=== PATIENT | male | born 1985 | race Caucasian/White ===

== ENCOUNTER 2017-11-22 23:08 | Emergency (ER) | payer SELFPAY ==
[2017-11-22 23:28] VITALS: BMI 24.8
--- NOTE | 2017-11-23 00:17 | PDOC ---
History of Present Illness <Adam Turk - Last Filed: 11/23/17 05:48> - General History Source: Patient Exam Limitations: No Limitations - History of Present Illness Initial Comments: 11/23/17 07:08 Patient is a 32 year old male with no significant past medical history who presents to the ED with complaints of epigastric abdominal pain and throat paint that began 4 days ago. Patient reports experiencing of epigastric abdominal pain and throat pain that began saturday afternoon and has been increasing in intensity over time. He reports epigastric throat pain and abdominal pain is a 5/10 in intensity at baseline but states, pain worse when he eats or drinks anything. Patient reports he hasn't eating anything more than Soup since saturday afternoon. He reports getting an endoscopy 5 months ago, with results indicating he had an ulcer. Pt notes his symptoms seem wors when he is lying down. Denies Sob. Denies nausea, vomiting. Garcia fevers, chills. Denies contact with sick individuals, out of state travelling. Denies any other symptoms. Allergies: None Social history: No smoking. No alcohol. No illicit drugs. Surgical history: Endoscopy s/p 5 months ago FamHx: Kidney complications. PMD: None <Quincy Hurst - Last Filed: 11/23/17 07:08> - General Chief Complaint: Pain, Acute Stated Complaint: FATIGUE Time Seen by Provider: 11/22/17 23:42 Past History - Suicide/Smoking/Psychosocial Hx Smoking History: Never smoked Have you smoked in the past 12 months: No Information on smoking cessation initiated: No Hx Alcohol Use: No Drug/Substance Use Hx: No <Adam Turk - Last Filed: 11/23/17 05:48> <Quincy Hurst - Last Filed: 11/23/17 07:08> - Past Medical History Allergies/Adverse Reactions: Allergies Allergy/AdvReac Type Severity Reaction Status Date / Time No Known Allergies Allergy Verified 11/22/17 23:26 Home Medications: Ambulatory Orders Ranitidine HCl [Zantac] 150 mg PO DAILY #20 tablet 11/23/17 Sucralfate [Carafate -] 1 gm PO BID #20 tablet 11/23/17 Review of Systems - Review of Systems Able to Perform ROS?: Yes Comments:: 02/10/18 07:08 CONSTITUTIONAL: No reported: Fever, Chills, Diaphoresis, Generalized Weakness, Malaise, Loss of Appetite HEENT: No reported: Rhinorrhea, Nasal Congestion, Throat Swelling, Difficulty Swallowing, Mouth Swelling, Ear Pain, Eye Pain, Visual Changes CARDIOVASCULAR: No reported: Chest Pain, Syncope, Palpitations, Irregular Heart Rate, Lightheadedness, Peripheral Edema RESPIRATORY: No reported: Cough, Shortness of Breath, SOB with Exertion, Orthopnea, Wheezing , Stridor, Hemoptysis GASTROINTESTINAL: +burning Abdominal pain that radiates up to throat No reported: Abdominal Distension, Nausea, Vomiting, Diarrhea, Constipation, Melena, Hematochezia GENITOURINARY: No reported: Dysuria, Frequency, Urgency, Hesitancy, Flank Pain, Genital Pain MUSCULOSKELETAL: No reported: Myalgia, Arthralgia, Joint Swelling, Back pain, Neck Pain SKIN: No reported: Rash, Itching, Pallor HEMATOLOGIC/IMMUNOLOGIC: No reported: Easy Bleeding, Easy Bruising, Lymphadenopathy, Frequent infections ENDOCRINE: No reported: Unexplained Weight Gain, Unexplained Weight Loss, Heat Intolerance , Cold Intolerance NEUROLOGIC: No reported: Headache, Focal Weakness, Paresthesias, Vertigo, Lightheadedness, Unsteady Gait, Seizure, Mental Status Changes, Incontinence PSYCHIATRIC: No reported: Anxiety, Depression <Quincy Hurst - Last Filed: 11/23/17 07:08> *Physical Exam - Vital Signs Last Vital Signs Temp Pulse Resp BP Pulse Ox 98.1 F 65 20 147/87 100 11/22/17 23:26 11/22/17 23:26 11/22/17 23:26 11/22/17 23:26 11/22/17 23:26 <Adam Turk - Last Filed: 11/23/17 05:48> - Vital Signs Last Vital Signs Temp Pulse Resp BP Pulse Ox 98 F 72 14 138/82 100 11/23/17 06:03 11/23/17 06:03 11/23/17 06:03 11/23/17 06:03 11/22/17 23:26 - Physical Exam Comments: 11/23/17 07:08 GENERAL: The patient is awake, alert, and fully oriented, Nontoxic - in no acute distress. HEAD: Normocephalic, atraumatic. EYES: extraocular movements intact, sclera anicteric, conjunctiva clear. ENT: Normal voice, Moist mucous membranes. NECK: Normal range of motion, No JVD LUNGS: Breath sounds equal, clear to auscultation bilaterally. No wheezes, no rhonchi, no rales. HEART: Regular rate and rhythm, normal S1 and S2 without murmur, rub or gallop. ABDOMEN: Soft, nontender, neg murphies sign, no tendernes at mcburneys, normoactive bowel sounds. No guarding, no rebound. No masses. No CVA tenderness EXTREMITIES: Normal range of motion, no edema. No clubbing or cyanosis. No cords , erythema, or tenderness. NEUROLOGICAL: No facial asymmetry, Normal speech, normal gait. PSYCH: Normal mood, normal affect. SKIN: Warm, Dry, normal turgor. <Quincy Hurst - Last Filed: 11/23/17 07:08> ED Treatment Course - LABORATORY CBC & Chemistry Diagram: 11/23/17 00:35 11/23/17 00:35 <Adam Turk - Last Filed: 11/23/17 05:48> - LABORATORY CBC & Chemistry Diagram: 11/23/17 00:35 11/23/17 00:35 - ADDITIONAL ORDERS Additional order review: Laboratory Results 11/23/17 11/23/17 00:49 00:35 Sodium 139 Potassium 4.3 Chloride 103 Carbon Dioxide 29 Anion Gap 7 L BUN 20 H Creatinine 1.1 Creat Clearance w eGFR > 60 Random Glucose 88 Calcium 9.4 Total Bilirubin 0.3 AST 13 L ALT 29 Alkaline Phosphatase 62 Total Protein 7.5 Albumin 3.8 Lipase 123 Urine Color Ltyellow Urine Appearance Clear Urine pH 6.0 Ur Specific [place] 1.023 Urine Protein Negative Urine Glucose (UA) Negative Urine Ketones Trace H Urine Blood Negative Urine Nitrite Negative Urine Bilirubin Negative Urine Urobilinogen 2.0 Ur Leukocyte Esterase Negative 11/23/17 00:35 RBC 4.54 MCV 92.2 MCHC 32.8 RDW 13.6 MPV 9.2 Neutrophils % 56.0 Lymphocytes % 35.2 Monocytes % 6.9 Eosinophils % 1.5 Basophils % 0.4 - Medications Given in the ED: ED Medications Discontinued Medications Generic Name Dose Route Start Last Admin Trade Name Freq PRN Reason Stop Dose Admin Al Hydroxide/Mg Hydroxide 30 ml 11/23/17 00:19 11/23/17 01:22 Mylanta Suspension - PO 11/23/17 00:20 30 ml ONCE ONE Administration Diphenhydramine HCl 25 mg 11/23/17 04:22 11/23/17 04:48 Benadryl Oral Solution - PO 11/23/17 04:23 25 mg ONCE ONE Administration Lactated Ringer's 1,000 ml 11/23/17 00:19 11/23/17 01:22 Lactated Ringers Solution IV 11/23/17 00:20 1,000 ml NOW ONE Administration Lidocaine HCl 20 ml 11/23/17 04:22 11/23/17 04:48 Xylocaine 2% Viscous Oral - MM 11/23/17 04:23 20 ml ONCE ONE Administration <Quincy Hurst - Last Filed: 11/23/17 07:08> Medical Decision Making - Medical Decision Making 11/23/17 00:16 32y M hx of PUD presents with abdominal and throat pain x 4 days, is burning in nture, constant. Pt states he has limited his eating due to the pain, it does seemw orse with eating. No prior pain in the past. Pt had endoscopy in the past that was noted for ulcer, although the pain has since resolved until recently. Pt does note that when he is laying down, he often has some mild discomfort in the epigastrium endorses nausea, denies any cp, sob, vomiting, fever/chills, back pain. pts exam unremarkble with a nontender abdomen. ddx includes pancreatitis, gastritis/pud will give pepcid/maalox will ck labs will reassess A portion of this note was documented by scribe services under my direction. I have reviewed the details of the note, within reason, and agree with the documentation with the following case summary and management plan written by me 11/23/17 05:48 labs reviewed unremarkble pt feeling a bit better will have pt fu with GI will give rx for zantac and carafate I discussed the physical exam findings, ancillary test results and final diagnoses with the patient. I answered all of the patient's questions. The patient was satisfied with the care received and felt comfortable with the discharge plan and treatment plan. The patient will call their primary care physician within 24 hours to arrange follow-up and will return to the Emergency Department with any new, persistent or worsening symptoms. <Adam Turk - Last Filed: 11/23/17 05:48> *DC/Admit/Observation/Transfer - Discharge Dispostion Admit: No <BurkeAdam - Last Filed: 11/23/17 05:48> - Attestations Scribe Attestion: 11/23/17 07:08 Documentation prepared by Quincy Hurst, acting as medical coordinator pesticide use for Adam Turk MD, /DO. <Natali,Quincy - Last Filed: 11/23/17 07:08> Diagnosis at time of Disposition: Gastritis Qualifiers: Gastritis type: unspecified gastritis Chronicity: acute Gastritis bleeding: without bleeding Qualified Code(s): K29.00 - Acute gastritis without bleeding - Discharge Dispostion Disposition: HOME Condition at time of disposition: Improved - Prescriptions Prescriptions: Ranitidine HCl [Zantac] 150 mg PO DAILY #20 tablet Sucralfate [Carafate -] 1 gm PO BID #20 tablet - Referrals Referrals: Lorne Granger MD [Staff Physician] - [facility] [place] [facility] [Provider Group] - Patient Instructions Printed Discharge Instructions: DI for Gastritis Additional Instructions: Return to the emergency department immediately with ANY new, persistent or worsening symptoms including any recurrent abdominal pain, fevers, chills, inability to tolerate oral intake or any other concerns. Stay away from alcohol, spicy foods, caffeine, acidic/sour foods. Take maalox if you have burning for relief. Continue using zantac every night for one week. You MUST call and follow up with your doctor and rejogger within 5 days for further evaluation of your symptoms. Your emergency department visit is not complete without a followup with your doctor for reevaluation. Results were discussed with you. Please make sure your doctor reviews the results of your emergency evaluation.
[2017-11-23] MEDS ORDERED: MAG HYDROX/AL HYDROX/SIMETH 355 ML ORAL.SUSP PO ONE (00:19)
[2017-11-23] MEDS ORDERED: LACTATED RINGERS SOLUTION 1000 ML INFUS.BAG IV ONE (00:19)
[2017-11-23 00:48] LABS: BASO % 0.4 % (0-2.0); EOS % 1.5 % (0-4.5); HEMATOCRIT 41.8 % (35.4-49); HEMOGLOBIN 13.7 GM/dL (11.7-16.9); LYMPH % 35.2 % (8-40); MCH 30.3 pg (25.7-33.7); MCHC 32.8 g/dl (32.0-35.9); MEAN CELL VOLUME 92.2 fl (80-96); MEAN PLT VOLUME 9.2 fl (7.5-11.1); MONO % 6.9 % (3.8-10.2); PLATELET COUNT 209 K/MM3 (134-434); RBC 4.54 M/mm3 (4.00-5.60); RDW 13.6 % (11.9-15.9); WHITE BLOOD COUNT 5.8 K/mm3 (4.0-10.0)
[2017-11-23 01:01] LABS: URINE APPEARANCE CLEAR; URINE BILIRUBIN NEGATIVE (NEGATIVE); URINE BLOOD NEGATIVE (NEGATIVE); URINE COLOR LTYELLOW; URINE GLUCOSE (UA) NEGATIVE (NEGATIVE); URINE KETONE TRACE (NEGATIVE); URINE LEUK ESTERASE NEGATIVE (NEGATIVE); URINE NITRITE NEGATIVE (NEGATIVE); URINE PROTEIN NEGATIVE (NEGATIVE)
[2017-11-23 01:11] LABS: ALBUMIN 3.8 g/dl (3.4-5.0); ALK PHOS 62 U/L (45-117); ANION GAP 7 (8-16); BILIRUBIN,TOTAL 0.3 mg/dL (0.2-1.0); BLOOD UREA NITROGEN 20 mg/dL (7-18); CALCIUM 9.4 mg/dL (8.5-10.1); CHLORIDE 103 mmol/L (98-107); CO2 29 mmol/L (21-32); CREATININE 1.1 mg/dL (0.7-1.3); GLUCOSE,RANDOM 88 mg/dL (74-106); LIPASE 123 U/L (73-393); POTASSIUM 4.3 mmol/L (3.5-5.1); SGOT/AST 13 U/L (15-37); SGPT/ALT 29 U/L (12-78); SODIUM 139 mmol/L (136-145); TOT PROT 7.5 g/dl (6.4-8.2)
[2017-11-23] MEDS ORDERED: MAG HYDROX/AL HYDROX/SIMETH 30 ML UNIT-DOSE CUP ONE (01:13)
[2017-11-23] MEDS ORDERED: diphenhydrAMINE HCL 12.5 MG/5 ML UNIT-DOSE CUPS PO ONE (04:22)
[2017-11-23] MEDS ORDERED: LIDOCAINE VISCOUS 2% ORAL/TOP 20 ML UNIT-DOSE CUP MM ONE (04:22)
[2017-11-23] MEDS ORDERED: diphenhydrAMINE HCL 25 MG CAPSULE (FP) PO ONE (04:28)
[2017-11-23] MEDS ORDERED: LIDOCAINE VISCOUS 2% ORAL/TOP 20 ML UNIT-DOSE CUP ONE (04:28)
[2017-11-23 06:04] VITALS: BP 138/82; PULSE 72; TEMP 98
[2017-11-23] MEDS ORDERED: FAMOTIDINE IV 20 MG/12 ML VIAL IVPUSH SCH (10:00)
== END 2017-11-23 06:05 | disposition home or self-care (01) ==
LOC: JER 23:08
DX: K29.00 Acute gastritis without bleeding (principal)
CPT/HCPCS: 36415; 80053; 81003; 83690; 85025; 99282-25

== ENCOUNTER 2020-05-04 14:24 | Emergency (ER) | payer OTHER ==
[2020-05-04 14:32] VITALS: BP 143/86; PULSE 71; TEMP 98.7; BMI 24.4
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
== END 2020-05-04 15:53 | disposition home or self-care (01) ==
LOC: JERFT 14:24
PROC: 0HQ1XZZ Repair Face Skin, External Approach (ICD-10-PCS; principal; 2020-05-04)
DX: S01.81XA Laceration without foreign body of other part of head, initial encounter (principal)
CPT/HCPCS: 99282-25